=== PATIENT | female | born 1980 | race Two or more races ===

== ENCOUNTER 2017-10-16 08:19 | Emergency (ER) | payer OTHER ==
[~2017-10-16] VITALS: Ht 167.6 cm; Wt 74.8 kg
--- NOTE | 2017-10-16 08:45 | NUR ---
PAGED DR. MALAGON FOR CONSULT
[2017-10-16 09:00] VITALS: BP 116/70
--- NOTE | 2017-10-16 09:32 | NUR ---
CALL BACK FROM DR HENRY,SHE WAS SUPPOSED TO GO TO DAY SURGERY.
--- NOTE | 2017-10-16 09:36 | NUR ---
TRANSFERRED TO DAY SURGERY VIA W/C
== END 2017-10-16 09:37 | disposition home or self-care (01) ==
LOC: ER 08:20
DX: Z13.89 Encounter for screening for other disorder (principal); M25.572 Pain in left ankle and joints of left foot
CPT/HCPCS: 99281; A4606; Z7610; Z7502

== ENCOUNTER 2017-10-16 09:37 | Day surgery (SDC) | payer OTHER ==
[2017-10-16] MEDS ORDERED: BACITRACIN 50000 UNITS/VIAL ONE (11:58)
[2017-10-16] MEDS ORDERED: KETOROLAC TROMETHAMINE INJ 30 MG/ML VIAL ONE (11:58)
[2017-10-16] MEDS ORDERED: HYDROMORPHONE INJ 2 MG/ML DISP.SYRIN ONE (12:25)
[2017-10-16] MEDS ORDERED: FENTANYL PF 100MCG/2ML AMPUL ONE (12:40)
[2017-10-16] MEDS ORDERED: HYDROCODONE/APAP 10/325MG 1 EA TABLET ONE (12:56)
[2017-10-16] MEDS ORDERED: HYDROCODONE/APAP 5/325MG 1 EACH TABLET PO PRN ×2 (13:00)
== END 2017-10-16 15:00 | disposition home or self-care (01) ==
LOC: DS 09:37
PROVIDERS: ATTEND Specialist
DX: S82.52XA Displaced fracture of medial malleolus of left tibia, initial encounter for closed fracture (principal); X58.XXXA Exposure to other specified factors, initial encounter; Y93.89 Activity, other specified; Y92.89 Other specified places as the place of occurrence of the external cause; Y99.8 Other external cause status; Z98.890 Other specified postprocedural states; Z79.899 Other long term (current) drug therapy
CPT/HCPCS: 27827; 84703; A4606; A6402 ×2; C1769; J1170; J1885; J3010

== ENCOUNTER 2017-10-25 16:17 | Emergency (ER) | payer OTHER ==
[~2017-10-25] VITALS: Ht 160 cm; Wt 75.3 kg
[2017-10-25 16:17] VITALS: BP 116/73
== END 2017-10-25 17:20 | disposition home or self-care (01) ==
LOC: ER 16:18
DX: Z46.89 Encounter for fitting and adjustment of other specified devices (principal)
CPT/HCPCS: 99281; A4606; Z7610; Z7502